=== PATIENT | male | born 1990 | race Two or more races ===

== ENCOUNTER 2021-02-18 16:05 | Emergency (ER) | payer MEDICAID ==
[~2021-02-18] VITALS: Ht 170.2 cm; Wt 56.7 kg
[2021-02-18] MEDS ORDERED: cefTRIAXone SOD 1,000 MG VL IM ONE (17:30)
[2021-02-18 17:32] VITALS: BP 128/81
[2021-02-18] MEDS ORDERED: PROM1SOL4 PO (17:40)
[2021-02-18] MEDS ORDERED: AZIT500T66 PO (17:40)
== END 2021-02-18 17:49 | disposition home or self-care (01) ==
LOC: ER 16:05
DX: J03.90 Acute tonsillitis, unspecified (principal); J20.9 Acute bronchitis, unspecified; F17.210 Nicotine dependence, cigarettes, uncomplicated
CPT/HCPCS: 71045; 96372; 99283; J0696

== ENCOUNTER 2023-10-08 21:49 | Emergency (ER) | payer OTHER, MEDICAID ==
[~2023-10-08] VITALS: Ht 172.7 cm; Wt 58.7 kg
[~2023-10-08 21:49] MED LIST: AZIT500T66 PO; PROM1SOL4 PO
[2023-10-08 21:59] VITALS: BP 154/76; PULSE 96; RESP 16; O2SAT 98
== END 2023-10-08 23:01 | disposition left against medical advice (07) ==
LOC: ER 21:49
DX: M54.59 Other low back pain (principal); R07.81 Pleurodynia; M25.511 Pain in right shoulder; Z53.21 Procedure and treatment not carried out due to patient leaving prior to being seen by health care provider

== ENCOUNTER 2024-12-08 18:56 | Emergency (ER) | payer OTHER, MEDICAID ==
[~2024-12-08] VITALS: Ht 172.7 cm; Wt 68.1 kg
[2024-12-08 19:18] VITALS: BP 105/71; PULSE 78; RESP 12; TEMP 98.8; O2SAT 97
== END 2024-12-08 19:37 | disposition left against medical advice (07) ==
LOC: EDBD 18:56 → ER 18:56
DX: M54.9 Dorsalgia, unspecified (principal)